=== PATIENT | female | born 1990 | race Caucasian/White ===

== ENCOUNTER 2019-02-04 21:33 | Emergency (ER) | payer OTHER ==
[~2019-02-04] VITALS: Ht 165.1 cm; Wt 71.8 kg
[2019-02-04 21:38] VITALS: Ht 165.1 cm; Wt 71.8 kg
[2019-02-04] MEDS ORDERED: ACETAMINOPHEN 325 MG TAB PO ONE (23:00)
[2019-02-05] MEDS ORDERED: NAPR-985 PO (00:15)
[2019-02-05 00:23] VITALS: BP 129/77; PULSE 64; RESP 17
--- NOTE | 2019-02-05 01:03 | ERD ---
ER Documentation Chief Complaint Chief Complaint BILATERAL LEG PAIN X 2 WEEKS. HPI 28-year-old female previously healthy presents to the emergency department complaining of left lower extremity pain for the past 1 week. Pain is constant. Patient noticed pain began in the plantar surface of the left foot and radiated upwards. Pain in the foot is worse when taking first steps out of bed in the morning. She is also noted some pain in her left buttocks. She reports approximately 8 hours travel in a car back and forth to [place] before her symptoms began. She is a regular daily smoker. She denies being on control. She denies any fevers, chills, abdominal pain, shortness of breath, or other symptoms at this time. ROS All systems reviewed and are negative except as per history of present illness. Medications Home Meds Active Scripts Naproxen* (Naprosyn*) 500 Mg Tablet, 500 MG PO BID PRN for PAIN AND/OR INFLAMMATION, #30 TAB Prov:JUSTEN MAGUIRE PA-C 02/05/19 Allergies Allergies: Coded Allergies: No Known Allergy (Unverified , 02/04/19) PMhx/Soc Medical and Surgical Hx: pt denies Medical Hx, pt denies Surgical Hx Hx Alcohol Use: Yes (Ocassional) Hx Substance Use: No Hx Tobacco Use: Yes Smoking Status: Current some day smoker FmHx Family History: No diabetes Physical Exam Vitals Vital Signs Date Temp Pulse Resp B/P (MAP) Pulse Ox O2 O2 Flow FiO2 Time Delivery Rate 02/05/19 98.6 64 17 129/77 98 Room Air 00:23 (94) 02/04/19 99.4 68 20 151/90 99 21:38 (110) Physical Exam Const: No acute distress Head: Atraumatic Eyes: Normal Conjunctiva ENT: Normal External Ears, Nose and Mouth. Neck: Full range of motion. No meningismus. Resp: Clear to auscultation bilaterally Cardio: Regular rate and rhythm, no murmurs Abd: Soft, non tender, non distended. Normal bowel sounds Skin: No petechiae or rashes Back: No midline or flank tenderness Ext: No cyanosis, or edema. Left calf tenderness to palpation. Tenderness palpation of the plantar surface of the left foot. Neur: Awake and alert Psych: Normal Mood and Affect Results 24 hrs Current Medications Medications Dose Sig/Jens Start Time Status Last (Trade) Ordered Route PRN Stop Time Admin Dose Reason Admin 650 mg ONCE ONCE 02/04/19 DC 02/04/19 Acetaminophen PO 23:00 23:02 (Tylenol 02/04/19 23:01 Tab) [place] [id number] Radiology Main Line: [phone] DIAGNOSTIC IMAGING REPORT Patient: JEWEL WHITAKER : 1990 Age: 28 Sex: F MR #: [id number] DOS: 02/04/19 0000 Ordering MD: JUSTEN MAGUIRE PA-C Location: [facility] Room/Bed: PROCEDURE: US left lower extremity veins. CLINICAL INDICATION: Left leg pain and swelling. TECHNIQUE: Multiple longitudinal and transverse images of the left lower extremity veins were obtained with gomez scale and color Doppler imaging. The common femoral vein, femoral vein, and popliteal vein were evaluated. 2D grayscale measurements with compression sonography, pulsed Doppler, color Doppler, and pulsed Doppler with augmentation. COMPARISON: No prior studies are available for comparison. FINDINGS: The left common femoral, femoral and popliteal veins are normally compressible throughout. Color flow demonstrates normal filling of the vessels. Normal waveforms are visualized and there is normal response to augmentation. IMPRESSION: 1. No evidence of deep vein thrombosis involving the left lower extremity. RPTAT: QQ .Rivas Mckeon MD, Date Time Electronically viewed and signed by .Rivas Mckeon MD, MD on 02/04/2019 23:12 .R/ CC: JUSTEN MAGUIRE PA-C [id number] Procedures/MDM 28-year-old female presents emergency department with signs and symptoms most consistent with plantar fasciitis of the left foot. Ultrasound of the left lower extremity was obtained to rule out DVT. There is no evidence of DVT. Study was interpreted by the radiologist. Patient stable and appropriate for discharge with counseling regarding home care for plantar fasciitis and she will be given prescription for naproxen. The patient was explicitly advised to ret urn here immediately for any new or concerning symptoms. She understands and agrees with the plan. Departure Diagnosis: Primary Impression: Left foot pain Additional Impression: Left leg pain Condition: Fair Patient Instructions: What Is Plantar Fasciitis? Referrals: [facility] YOU HAVE RECEIVED A MEDICAL SCREENING EXAM AND THE RESULTS INDICATE THAT YOU DO NOT HAVE A CONDITION THAT REQUIRES URGENT TREATMENT IN THE EMERGENCY DEPARTMENT. FURTHER EVALUATION AND TREATMENT OF YOUR CONDITION CAN WAIT UNTIL YOU ARE SEEN IN YOUR DOCTORS OFFICE WITHIN THE NEXT 1-2 DAYS. IT IS YOUR RESPONSIBILITY TO MAKE AN APPOINTMENT FOR [facility]. IF YOU HAVE A PRIMARY DOCTOR --you should call your primary doctor and schedule an appointment IF YOU DO NOT HAVE A PRIMARY DOCTOR YOU CAN CALL OUR PHYSICIAN REFERRAL HOTLINE AT IF YOU CAN NOT AFFORD TO SEE A PHYSICIAN YOU CAN CHOSE FROM THE FOLLOWING [facility] [address] [facility]. [facility] [address] [facility] [facility] [address] [facility] [facility] [address] [facility]. [facility] [address] [facility]. [facility] [address] Additional Instructions: Call your primary care doctor TOMORROW for an appointment during the next 1-2 days.See the doctor sooner or return here if your condition worsens before your appointment time. JUSTEN MAGUIRE PA-C Feb 05, 2019 01:03
== END 2019-02-05 00:23 | disposition home or self-care (01) ==
LOC: FTE 21:33
DX: M72.2 Plantar fascial fibromatosis (principal); F17.210 Nicotine dependence, cigarettes, uncomplicated
CPT/HCPCS: 93971; Z7502; Z7610